=== PATIENT | male | born 1975 | race Caucasian/White ===

== ENCOUNTER 2018-01-25 10:24 | Day surgery (SDC) | payer OTHER ==
[2018-01-23 13:51] VITALS: BMI 25.1
[2018-01-25] MEDS ORDERED: DESFLURANE GAS 240 ML BOTTLE IH ONE (13:07)
[2018-01-25] MEDS ORDERED: ONDANSETRON 4 MG/2 ML VIAL ONE ×2 (13:10→15:38)
[2018-01-25] MEDS ORDERED: MIDAZOLAM HCL 2 MG/2 ML SINGLE DOSE VIAL ONE (13:10)
[2018-01-25] MEDS ORDERED: DEXAMETHASONE SOD PHOSPHATE 4 MG/1 ML VIAL ONE (13:10)
[2018-01-25] MEDS ORDERED: KETOROLAC TROMETHAMINE 30 MG/1 ML VIAL ONE (13:10)
[2018-01-25] MEDS ORDERED: LIDOCAINE HCL 2% JELLY (5 ML/TUBE) ONE (13:10)
[2018-01-25] MEDS ORDERED: PROPOFOL 20 ML ONE (13:10)
[2018-01-25] MEDS ORDERED: ceFAZolin SODIUM 1 GM VIAL ONE (13:10)
[2018-01-25] MEDS ORDERED: BUPIVACAINE HCL 0.25% 125 MG/50 ML VIAL ONE (14:13)
[2018-01-25] MEDS ORDERED: ACETAMINOPHEN INJECTION 100 ML IVPB ONE (15:11)
[2018-01-25] MEDS ORDERED: ONDANSETRON 4 MG/2 ML VIAL IVPUSH PRN (15:37)
[2018-01-25] MEDS ORDERED: PROMETHAZINE HCL 25 MG/1 ML VIAL IVPUSH PRN (15:37)
[2018-01-25] MEDS ORDERED: oxyCODONE HCL 5 MG TABLET PO PRN ×2 (15:37)
[2018-01-25] MEDS ORDERED: oxyCODONE HCL 5 MG TABLET ONE (16:34)
[2018-01-25 17:46] VITALS: BP 128/81; PULSE 74; TEMP 97.5
--- NOTE | 2018-01-25 18:34 | OP ---
DATE OF OPERATION: 01/25/2018 LOCATION: [facility]. SURGEON: Awa iNcholas MD JUNIOR ENGINEER: LIZ Maldonado PREOPERATIVE DIAGNOSIS: Left biceps tendon distal tendon tear/avulsion. POSTOPERATIVE DIAGNOSIS: Left biceps tendon distal tendon tear/avulsion. PROCEDURE: Repair and insertion of distal biceps tendon, left elbow/arm. FINDINGS: Avulsed biceps tendon. DESCRIPTION OF PROCEDURE: Informed consent was obtained. The patient came to the operating room, where the left upper extremity was prepped and draped in a sterile fashion. A tourniquet was placed on the upper arm, inflated to 250 mmHg. A horizontal incision was made 2 cm distal to the elbow crease. The biceps tendon was identified, and two No. 2 FiberWires were placed around the biceps tendon with a Krackow interlocking stitch, locking in the ToggleLoc device. The pathway to the greater tuberosity was retraced, and the radial neck was exposed. With the arm fully supinated, a guidewire was placed through the radial neck at the area of the biceps insertion, followed by a guide pin. A 7.5-mm drill on the anterior surface and a 4.5-mm drill on the posterior surface. Copious amounts of irrigation were performed multiple times throughout the procedure. The ToggleLoc device was through the anterior to the posterior portal, turned 90 degrees, and locked on the posterior cortex. This allowed for tightening the biceps tendon into the bleeding bone and secured into the anterior cortex. This was then secured. Wound was irrigated with copious amounts of irrigation. Tourniquet was released. There was no evidence of arterial bleeding. The fascial layer was closed with 2-0 Vicryl in single interrupted sutures, and 3-0 Prolene was used along the skin. Sterile dressing and splint were placed. The patient was transferred to the recovery room without complication. AWA NICHOLAS M.D. [id number]
--- NOTE | 2018-01-29 16:36 | PATH ---
Surgical Pathology Report Patient Name: DARRELL PINEDA [facility]. Rec. #: [id number] /Age/Gender: 1975 (Age: 43) / M Account: [id number] Location: [facility] AMBULATORY Taken: 01/25/2018 Received: 01/25/2018 Reported: 01/29/2018 Physicians: Isma Sevilla M.D. Specimen(s) Received LEFT BICEP TENDON Clinical History Left biceps tendon rupture Final Diagnosis BICEP TENDON, LEFT, REPAIR: DENSE FIBROCONNECTIVE TISSUE WITH MILD CHRONIC INFLAMMATION, AREAS OF HEMORRHAGE, AND GRANULATION TISSUE. Electronically Signed Georgina Nuno M.D. Gross Description Received in formalin labeled "left bicep tendon", is a piece of irregular soft tissue measuring 2 x 1.1 x 0.5 cm. A focal area of white discoloration is identified. The specimen is serially sectioned entirely submitted one cassette. EMILIE/01/28/2018 vesna/01/28/2018
== END 2018-01-25 17:40 | disposition home or self-care (01) ==
LOC: FASU 10:24
PROVIDERS: ATTEND Orthopaedic Surgery
PROC: 0LM40ZZ Reattachment of Left Upper Arm Tendon, Open Approach (ICD-10-PCS; principal; 2018-01-25 14:20)
DX: S46.211A Strain of muscle, fascia and tendon of other parts of biceps, right arm, initial encounter (principal); X58.XXXA Exposure to other specified factors, initial encounter; Y93.9 Activity, unspecified; Y92.9 Unspecified place or not applicable
CPT/HCPCS: 88304-TC; 94760; J0131